=== PATIENT | male | born 1990 | race Caucasian/White ===

== ENCOUNTER 2016-11-14 16:27 | Emergency (ER) | payer MEDICAID ==
[~2016-11-14] VITALS: Ht 190.5 cm; Wt 86.2 kg
[~2016-11-14 16:27] MED LIST: BACTRIM DS 8001 TA1 PO; LORTAB 5/500 501 TAB PO; NOMEDS *
[2016-11-14] MEDS ORDERED: AUGMENTIN 875-1 EACH PO (16:52)
--- NOTE | 2016-11-14 16:53 | Emergency Room Report ---
History of Present Illness Time Seen by MD Ocampo Presenting Problem in Triage Pt arrived:Walked Presenting Problem:PT STATES HE WAS AT WORK WHEN HE REACHED DOWN TO PET A DOG AND THE DOG BIT HIS LEFT HAND. STATES HAPPENED APPROX 729. STATES APPLYING LIQUID BANDAGE TO AREA. STATES TAKING IBUPROFEN AT 1200. STATES HE DID NOT KNOW THE DOG, BUT THE DOG HAD A COLLAR ON. Onset of symptoms date/time:11/14/16 or onset unknown for: Treatment Prior to Arrival: PT STATES TAKING IBUPROFEN AT 1200 [employer] Provided by :SELF Sepsis Risk Assessment: Temp: 98.1 B/P: 153/83 MAP: 106 Pulse: 83 Resp: 20 Recent fever? N Clinical Suspician of Infection? N Mental Status: 1 - Regular (Normal Baseline) Sepsis Risk:Low Sepsis Risk Have you (or family members/close friends) recently traveled outside the [facility]? N If Yes, where/when: Have you had exposure to infectious disease within the past month? N TB? Other? Specify: Left medial palm, dogbite, occurred at work in [place] this morning. He did not wash area. He applied liquid bandage. 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 Tetanus status UTD. ALLERGIES Coded Allergies: codeine (11/14/16) Home Medications Reported Medications No Home Medications (NO HOME MEDICATIONS) 1 X * ONCE History Medical History General CAD? No Angina: No PR: No Hypertension? No Hyperlipidemia? No CHF? No DVT? No PE? No COPD? No Asthma? No Anemia? No GERD? No Gastric ulcers? No GI Bleed? No Hernia? No Thyroid Problems? No Hypothyroidism? No CVA? No Seizures? No Diabetes? No Renal Insuffiency? No End Stage Renal Disease? No UTI? No Stones? No GB Disease: No Nephritic Syndrome? No Asplenia? No Hepatitis? No Sickle Cell Disease? No Arthritis? No Migraines? No Cataracts? No Glaucoma? No MRSA? No HIV? No TB? No Anxiety? No Depression? No Cancer? No Immunization Hx DT/Tetanus < 1 Year Ago Surgical Hx Previous Surgery?Y NOSE Dental Surgery Social History Smoking Hx Smoker: Never Smoker Tobacco: No Alcohol Alcohol: No Review of Systems All Other Systems Reviewed and Negative Skin see HPI Psychiatric/Neurological denies no symptoms reported Physical Exam Vital Signs Vital Signs Date Time Temp Pulse Resp B/P Pulse O2 O2 Flow FiO2 Ox Delivery Rate 11/14 1632 98.1 83 20 153/83 98 General Appearance normal appearance, WD/WN, no apparent distress Respiratory Status No: respiratory distress. Cardiovascular no peripheral edema Extremities shallow abrasions to medial palm, no bleeding, slightly covered with liquid adhesive, no drainage, no FB, no streaks. About two cm in diameter at widest area. No gaping or active bleeding. Neurologic alert, no motor/sensory deficits, oriented x 3 Skin intact (see above) Medical Decision Making LABS/Meds/Orders Pt receiving controlled substance in ED? No Results/Orders Current Medication Orders Sig/Debbie Start time Last Medication Dose Route Stop Time Status Admin Amoxicillin/ 500 MG ONCE ONE 11/14 170 AC Clavulanate Potassium PO 11/14 170 Departure Departure Time of Disposition 165 Disposition DC Home or Self Care(routine) Clinical Impression Primary Impression: Dog bite of left hand without complication Qualifiers: Encounter type: initial encounter Qualified Code: S61.452A - Open bite of left hand, initial encounter Condition STABLE Referrals BRYSON EDWARDS (Family) Patient Instructions DI for Dog Bite Additional Instructions Hot soaks for twenty minutes, every two hours while awake; watch for infection; need wound check by Dr. Edwards in 24-36 hours; Rx Augmentin Discharge Counseling Counseled pt/family regarding diagnosis, medications/RX, home care, follow up needs Prescriptions Current Visit Scripts Amoxicillin/Potassium Clav (Augmentin 875-125 Tablet) 1 EACH PO BID #20 TAB ED Critical Care Critical Care No at 1653
[2016-11-14 16:59] VITALS: BP 143/83
== END 2016-11-14 17:00 | disposition home or self-care (01) ==
LOC: ER 16:27
DX: S61.452A Open bite of left hand, initial encounter (principal); W54.0XXA Bitten by dog, initial encounter; Y92.69 Other specified industrial and construction area as the place of occurrence of the external cause; Y99.0 Civilian activity done for income or pay